=== PATIENT | female | born 1970 | race Caucasian/White ===

== ENCOUNTER → 2017-03-21 | Outpatient (CLI) | payer BC ==
[~2017-03-21] MED LIST: CHOL2000 PO; DICL1TAB55 PO; TRAZ50TA18 PO
== END | disposition home or self-care (01) ==
LOC: CFH 09:59
PROVIDERS: ATTEND Obstetrics & Gynecology
DX: Z12.31 Encounter for screening mammogram for malignant neoplasm of breast (principal)
CPT/HCPCS: 77063; G0202

== ENCOUNTER 2017-04-28 09:47 | Inpatient (IN) | payer BC ==
[~2017-04-28] VITALS: Ht 182.9 cm; Wt 115.8 kg
[~2017-04-28 09:47] MED LIST changes: +CITA10TA4 PO; +EPINEPHRINE 1 MG/ML, 1ML ONE; +ERGO500017 PO; +KETOROLAC 60 MG/2 ML ONE; +LISI-170 PO; +ROPIvacaine/PF 0.2%, 20 ML ONE; +SODIUM CHLORIDE 0.9% 100 ML ONE; +TRANEXAMIC ACID 100 MG/ML, 10ML ONE
[2017-04-28] MEDS ORDERED: LACTATED RINGERS 1,000 ML IV SCH (10:12)
[2017-04-28 10:38] LABS: HCG UR SG 1.018 (1.003-1.030)
[2017-04-28] MEDS ORDERED: TRANEXAMIC ACID 100 MG/ML, 10ML ONE ×2 (11:15→15:01)
[2017-04-28] MEDS ORDERED: MIDAZOLAM 1 MG/ML, 2ML ONE (12:20)
[2017-04-28] MEDS ORDERED: FENTANYL PF 100 MCG/2ML ONE ×2 (12:20→14:06)
[2017-04-28] MEDS ORDERED: PROPOFOL 50 ML ONE (12:24)
[2017-04-28] MEDS ORDERED: LIDOCAINE GEL 2%, 5ML ONE ×2 (13:46)
[2017-04-28] MEDS ORDERED: HYDROmorphone 1 MG/ML, 1ML IV PRN (14:00)
[2017-04-28] MEDS ORDERED: PROMETHAZINE 12.5 MG SUPP PR PRN (14:00)
[2017-04-28] MEDS ORDERED: BISACODYL 10 MG SUPP PR PRN (14:00)
[2017-04-28] MEDS ORDERED: HYDROcodone/APAP 7.5-325MG/15ML UDC PO PRN (14:00)
[2017-04-28] MEDS ORDERED: ACETAMINOPHEN 325 MG TABLET PO PRN (14:00)
[2017-04-28] MEDS ORDERED: PROMETHAZINE 25 MG/ML, 1ML IM PRN (14:00)
[2017-04-28] MEDS ORDERED: ZOLPIDEM 5MG TABLET PO PRN (14:00)
[2017-04-28] MEDS ORDERED: FENTANYL PF 100 MCG/2ML IV PRN (14:00)
[2017-04-28] MEDS ORDERED: MAGNESIUM HYDROXIDE 8%, 30ML UDC PO PRN (14:00)
[2017-04-28] MEDS ORDERED: OXYcodone IR 5MG TABLET PO PRN (14:00)
[2017-04-28] MEDS ORDERED: HYDROcodone/APAP 10/325 MG TABLET PO PRN (14:00)
[2017-04-28] MEDS ORDERED: ONDANSETRON 4 MG TABLET PO PRN (14:00)
[2017-04-28] MEDS ORDERED: SENNA/DOCUSATE TABLET PO PRN (14:00)
[2017-04-28] MEDS ORDERED: DIAZEPAM 5 MG TABLET PO PRN (14:00)
[2017-04-28] MEDS ORDERED: ONDANSETRON 2MG/ML, 2ML IVPush PRN (14:00)
[2017-04-28] MEDS ORDERED: DIPHENHYDRAMINE 50 MG CAPSULE PO PRN (14:00)
[2017-04-28] MEDS ORDERED: hydrALAzine 20 MG/ML, 1ML IV PRN (14:00)
[2017-04-28] MEDS ORDERED: LABETALOL 5MG/ML, 20ML IV PRN (14:00)
[2017-04-28] MEDS ORDERED: ALUMINUM/MAG/SIMETHICONE 30 ML UDC PO PRN (14:00)
[2017-04-28] MEDS ORDERED: OXYcodone 5 MG/5 ML ORAL.SOL UDC PO PRN (14:00)
[2017-04-28] MEDS: OXYcodone IR 5MG TABLET PO SCH ×3 (14:00→22:00)
[2017-04-28] MEDS ORDERED: HYDROmorphone 2 MG/ML, 1ML ONE ×2 (14:20→16:08)
[2017-04-28] MEDS ORDERED: hydrALAzine 20 MG/ML, 1ML ONE (14:42)
[2017-04-28] MEDS ORDERED: LABETALOL 5MG/ML, 20ML ONE (14:42)
[2017-04-28] MEDS ORDERED: TRANEXAMIC ACID 1,000 MG in SODIUM CHLORIDE 0.9% 100 ML IVPB ONE (16:00)
[2017-04-28] MEDS: HYDROmorphone 1 MG/ML, 1ML IV PRN ×2 (16:00→16:15)
[2017-04-28] MEDS ORDERED: OXYcodone 5 MG/5 ML ORAL.SOL UDC ONE (16:35)
[2017-04-28 19:20] VITALS: BP 118/67
[2017-04-28] MEDS: DOCUSATE 100 MG CAPSULE PO SCH (20:30)
[2017-04-28] MEDS: TAMSULOSIN 0.4 MG CAP.ER.24H PO SCH (20:30)
[2017-04-28] MEDS: ACETAMINOPHEN 650 MG/20.3 ML UDC PO SCH ×2 (20:30→22:00)
[2017-04-28] MEDS ORDERED: ACETAMINOPHEN 500 MG TABLET ONE (20:34)
[2017-04-28] MEDS: D5%-0.45% NACL 1,000 ML IV SCH (20:51)
[2017-04-28] MEDS: ONDANSETRON 2MG/ML, 2ML IV PRN (20:57)
[2017-04-28] MEDS: KETOROLAC 30 MG/1 ML IV SCH (21:00)
[2017-04-28] MEDS: CEFAZOLIN PMX 2GM/50ML 50 ML IVPB SCH (21:40)
[2017-04-29 00:16] VITALS: BP 118/70
[2017-04-29] MEDS: OXYcodone IR 5MG TABLET PO SCH ×6 (02:00→17:58)
[2017-04-29] MEDS: ONDANSETRON 2MG/ML, 2ML IV PRN ×2 (02:51→09:21)
[2017-04-29] MEDS: KETOROLAC 30 MG/1 ML IV SCH ×3 (02:51→15:10)
[2017-04-29 04:22] VITALS: BP 124/68
[2017-04-29] MEDS: D5%-0.45% NACL 1,000 ML IV SCH ×3 (05:10→16:10)
[2017-04-29] MEDS: CEFAZOLIN PMX 2GM/50ML 50 ML IVPB SCH (05:10)
[2017-04-29] MEDS ORDERED: ACETAMINOPHEN 500 MG TABLET ONE (05:29)
[2017-04-29] MEDS: ACETAMINOPHEN 650 MG/20.3 ML UDC PO SCH ×2 (05:30→14:22)
[2017-04-29] MEDS ORDERED: ASPIRIN 81 MG TABLET EC PO SCH (06:00)
[2017-04-29] MEDS ORDERED: DEXAMETHASONE 4 MG/ML, 1ML IVPush SCH (06:00)
[2017-04-29] MEDS ORDERED: SODIUM CHLORIDE 0.9% 1,000 ML IV ONE (07:00)
[2017-04-29] MEDS ORDERED: SCOPOLAMINE PATCH, 1.5MG PATCH.TD72 TD ONE (07:00)
[2017-04-29 07:38] VITALS: BP 127/72
[2017-04-29] MEDS ORDERED: MULTIVITAMINS/MINERALS TABLET PO SCH (09:00)
[2017-04-29] MEDS ORDERED: CITALOPRAM 10 MG TABLET PO SCH (09:00)
[2017-04-29] MEDS ORDERED: LISINOPRIL 20 MG TABLET PO SCH (09:00)
[2017-04-29] MEDS: DOCUSATE 100 MG CAPSULE PO SCH (09:31)
[2017-04-29] MEDS: TAMSULOSIN 0.4 MG CAP.ER.24H PO SCH (09:31)
[2017-04-29 13:12] VITALS: BP 121/68
[2017-04-29] MEDS ORDERED: ACETAMINOPHEN 325 MG TABLET ONE (14:21)
[2017-04-29] MEDS ORDERED: TRAZODONE 50MG TABLET PO PRN (21:00)
[2018-04-28] MEDS ORDERED: DEXAMETHASONE 4 MG/ML, 1ML ONE (13:48)
[2018-04-28] MEDS ORDERED: ONDANSETRON 2MG/ML, 2ML ONE (13:48)
[2018-04-28] MEDS ORDERED: MIDAZOLAM 1 MG/ML, 5ML ONE (13:48)
[2018-04-28] MEDS ORDERED: CEFAZOLIN 1,000 MG ONE (13:48)
[2018-04-28] MEDS ORDERED: PROPOFOL 10 MG/ML, 20ML ONE (13:48)
== END 2017-04-29 19:30 | disposition home or self-care (01) | DRG 470 ==
LOC: ORIP 09:47 → 4NOR 18:06
PROVIDERS: ADMIT Orthopaedic Surgery; ATTEND Orthopaedic Surgery
PROC: 0SRC0J9 Replacement of Right Knee Joint with Synthetic Substitute, Cemented, Open Approach (ICD-10-PCS; principal; 2017-04-28 12:45)
DX: M17.11 Unilateral primary osteoarthritis, right knee (principal); F32.9 Major depressive disorder, single episode, unspecified; I10 Essential (primary) hypertension
CPT/HCPCS: 36415; 81025; 85014; 85018; C1713; J0171; J0690; J1100; J1170; J1885; J2250; J2405; J2550; J2704; J2795; J3010; C1776; J0360; J7030; J7120

== ENCOUNTER 2020-02-29 11:22 | Outpatient (CLI) | payer SELFPAY ==
[~2020-02-29 11:22] MED LIST changes: -EPINEPHRINE 1 MG/ML, 1ML ONE; -KETOROLAC 60 MG/2 ML ONE; -ROPIvacaine/PF 0.2%, 20 ML ONE; -SODIUM CHLORIDE 0.9% 100 ML ONE; -TRANEXAMIC ACID 100 MG/ML, 10ML ONE; -TRAZ50TA18 PO; +TRAZ50TA66 PO
== END 2020-02-29 23:59 | disposition home or self-care (01) ==
LOC: LAB 11:22
PROVIDERS: ATTEND Student in an Organized Health Care Education/Training Program
DX: Z00.00 Encounter for general adult medical examination without abnormal findings (principal)
CPT/HCPCS: 36415